=== PATIENT | male | born 1945 | race American Indian/Alaskan Native ===

== ENCOUNTER 2020-10-31 06:06 | Emergency (ER) | payer MEDICARE ==
[2020-10-31] MEDS ORDERED: MECLIZINE 25 MG TAB PO ONE (07:42)
--- NOTE | 2020-10-31 07:47 | Emergency Department Report ---
HPI - General Chief Complaint: Dizziness Time Seen by Provider: 10/31/20 07:16 - HPI HPI: This is a 75-year-old -[place] male presents to the emergency department with complaint of having some dizziness, that he describes as vertigo-like symptoms, since about 430 this morning. He denies any headache, slurred speech, vision change, numbness or paresthesias, chest pain, weakness, shortness of breath, fever. He has not taken anything for symptoms prior to presentation. He has a past medical history of COPD, not oxygen dependent, GERD, and coronary artery disease with PR x2 and coronary stents x4. The patient had his first shot of the Covid vaccination done yesterday. His primary care physician is Dr. Michael Clifford and his restaurant assistant is Dr. Pack. No recent travel or sick contacts at home. 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) Hx Congestive Heart Failure: No Hx Diabetes: No Hx GERD: Yes Hx Asthma: No Hx COPD: Yes - Surgical History Past Surgical History?: Yes Hx Coronary Stent: Yes (X2) - Social History Smoking Status: Former Smoker Substance Use Type: None - Medications Home Medications: Home Medications Medication Instructions Recorded Confirmed Last Taken Type Aspirin 325 mg PO DAILY 03/02/14 03/02/14 03/02/14 History 325 mg Clopidogrel Bisulfate [Plavix] 75 mg PO DAILY 03/02/14 03/02/14 03/02/14 History 75 mg Dexlansoprazole [Dexilant] 60 mg PO PRN PRN 03/02/14 03/02/14 02/20/14 History 60 mg Isosorbide Mononitrate [Isosorbide 30 mg PO DAILY 03/02/14 03/02/14 03/02/14 History Mononitrate ER] 30 mg Metoprolol Xl [Metoprolol 50 mg PO DAILY 03/02/14 03/02/14 03/02/14 History SUCCINATE ER TAB] 50 mg Simvastatin 40 mg PO DAILY 03/02/14 03/02/14 03/02/14 History 40 mg Meclizine [Antivert] 25 mg PO TID PRN #15 tablet 10/31/20 Unknown Rx ED Review of Systems ROS: Stated complaint: DIZZINESS Other details as noted in HPI Comment: All other systems reviewed and negative Constitutional: denies: chills, fever Eyes: denies: eye pain, vision change ENT: denies: ear pain, throat pain Respiratory: denies: cough, shortness of breath Cardiovascular: denies: chest pain, palpitations Gastrointestinal: denies: abdominal pain, vomiting Genitourinary: denies: dysuria, discharge Musculoskeletal: denies: back pain, arthralgia Skin: denies: rash, lesions Neurological: vertigo. denies: headache Physical Exam - Physical Exam Vital Signs: Vital Signs 10/31/20 10/31/20 06:20 06:25 Temperature 98.2 F Pulse Rate 61 Respiratory 12 18 Rate Blood Pressure 126/74 [Left] O2 Sat by Pulse 99 98 Oximetry Physical Exam: GENERAL: The patient is well-developed well-nourished. HENT: Normocephalic. Atraumatic. Patient has moist mucous membranes. EYES: Extraocular motions are intact. Pupils equal reactive to light bilat erally. NECK: Supple. Trachea is midline. CHEST/LUNGS: Clear to auscultation. There is no respiratory distress noted. HEART/CARDIOVASCULAR: Regular. There is no tachycardia. There is no murmur. ABDOMEN: Abdomen is soft, nontender. Patient has normal bowel sounds. SKIN: Skin is warm and dry. NEURO: The patient is awake, alert, and oriented. The patient is cooperative. The patient has no focal neurologic deficits. Normal speech. Cranial nerves II through XII grossly intact. No facial asymmetry or dysmetria. MUSCULOSKELETAL: There is no tenderness or deformity. There is no limitation range of motion. ED Course Vital Signs 10/31/20 10/31/20 06:20 06:25 Temperature 98.2 F Pulse Rate 61 Respiratory 12 18 Rate Blood Pressure 126/74 [Left] O2 Sat by Pulse 99 98 Oximetry ED Medical Decision Making - Lab Data Result diagrams: 10/31/20 08:22 10/31/20 08:22 - EKG Data -: EKG Interpreted by Me EKG shows normal: sinus rhythm, axis, intervals, QRS complexes (Right bundle branch block), ST-T waves Rate: bradycardia (52 bpm) - EKG Data When compared to previous EKG there are: previous EKG unavailable Interpretation: other (Sinus bradycardia 52 bpm, normal axis, normal intervals, right bundle branch block. No ST elevation PR.) - Medical Decision Making This patient presents with the complaint of some vertigo-like dizziness that started around 4:30 AM this morning. He denies any headache, vision change, slurred speech or any other neurological deficits. On examination he does not have any focal, motor or sensory deficits and his cranial nerves are intact. Patient was given a dose of meclizine. Upon reevaluation he says that his symptoms have completely resolved. Patient's labs have been unremarkable except for renal insufficiency with a GFR of about 30. The patient denies any history of kidney problems. At this point a urinalysis was checked and there is no UTI or any proteinuria. The patient denies any issues with urination. Vital signs reassuring throughout his ED course including being afebrile. The patient was seen ambulatory in the emergency department and both appears and feels stable. For all these reasons patient appears safe for discharge home at this time. He has been given an outpatient referral for nephrology regarding the renal insufficiency found on labs. He will follow up with his primary care physician, and will return to the emergency department with any worsening of his symptoms or with any acute distress. Critical Care Time: No Critical care attestation.: If time is entered above; I have spent that time in minutes in the direct care of this critically ill patient, excluding procedure time. ED Disposition Clinical Impression: Vertigo, Renal insufficiency Disposition: DC-01 TO HOME OR SELFCARE Is pt being admited?: No Condition: Stable Instructions: Acute Kidney Injury, Adult, Vertigo, Dizziness Additional Instructions: Please follow-up with your primary care physician in the next few days. Your labs today show decreased kidney function, working at about 50% capacity. For this reason, please avoid taking any NSAIDs such as Aleve, ibuprofen, naproxen, Advil. I have given you a referral for a local sewer hand (kidney doctor), Dr. Mascorro. Return to the emergency department with any worsening of your symptoms, new or concerning symptoms not addressed during this current emergency department visit, or with any acute distress. Prescriptions: Meclizine [Antivert] 25 mg PO TID PRN #15 tablet PRN Reason: Vertigo Referrals: MICHAEL CLIFFORD MD [Primary Care Provider] - 3-5 Days DANELLE MASCORRO MD [Staff Physician] - 3-5 Days Time of Disposition: 12:04
[2020-10-31 08:58] LABS: Basophils % (Auto) 0.5 % (0.0-1.8); Eosinophils # (Auto) 0.1 K/mm3 (0.0-0.4); Eosinophils % (Auto) 1.6 % (0.0-4.3); Hematocrit 37.2 % (35.5-45.6); Hemoglobin 12.2 gm/dl (11.8-15.2); Lymphocytes # (Auto) 0.7 K/mm3 (1.2-5.4); Lymphocytes % (Auto) 14.5 % (13.4-35.0); Mean Corpuscular HGB Conc 33 % (32-34); Mean Corpuscular Volume 84 fl (84-94); Monocytes # (Auto) 0.6 K/mm3 (0.0-0.8); Platelet Count 264 K/mm3 (140-440); Red Blood Count 4.43 M/mm3 (3.65-5.03)
[2020-10-31 09:00] LABS: Red Cell Distribution Width 21.6 % (13.2-15.2)
[2020-10-31 09:14] LABS: Calcium 9.4 mg/dL (8.4-10.2)
[2020-10-31 11:06] LABS: Bilirubin,Urine NEG (Negative); Mucus,Urine FEW /HPF; Protein,Urine <15 mg/dL mg/dL (Negative); Urobilinogen,Urine < 2.0 mg/dL (<2.0); WBC,Urine < 1.0 /HPF (0.0-6.0)
[2020-10-31 11:32] LABS: Bacteria,Urine 1+ /HPF (Negative); Blood,Urine SM (Negative); Color,Urine Straw (Yellow)
[2020-10-31 12:47] VITALS: BP 128/76
--- NOTE | 2020-11-02 09:12 | Electrocardiograph Report ---
[facility] Test Date: 2020-10-31 Test Time: 10:24:28 Pat Name: HELEN PATTERSON JR Department: Room: Gender: M Him Director: EM : 1945 Requested By: CHAPIS SOTO Order Number: [id number] Reading MD: Justyn Webb Measurements Intervals [place] Rate: 52 P: 62 UT: 186 QRS: 64 QRSD: 130 T: 26 QT: 415 QTc: 387 Interpretive Statements Sinus bradycardia Right bundle branch block No previous ECG available for comparison Electronically Signed On 11-02-2020 9:12:33 EDT by Justyn Webb
== END 2020-10-31 12:48 | disposition home or self-care (01) ==
LOC: ED 06:06
DX: N28.9 Disorder of kidney and ureter, unspecified (principal); R42 Dizziness and giddiness; I10 Essential (primary) hypertension; I25.2 Old myocardial infarction; K21.9 Gastro-esophageal reflux disease without esophagitis; J44.9 Chronic obstructive pulmonary disease, unspecified; Z87.891 Personal history of nicotine dependence; Z79.899 Other long term (current) drug therapy
CPT/HCPCS: 36415; 80048; 81001; 84443; 85025; 93005